=== PATIENT | female | born 1970 | race Two or more races ===

== ENCOUNTER 2019-01-17 13:21 | Emergency (ER) | payer SELFPAY ==
[~2019-01-17] VITALS: Ht 162.6 cm; Wt 74.8 kg
[2019-01-17 15:08] VITALS: BP 113/59
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
== END 2019-01-17 16:36 | disposition home or self-care (01) ==
LOC: ER 13:21
DX: S09.8XXA Other specified injuries of head, initial encounter (principal); R07.81 Pleurodynia; V49.9XXA Car occupant (driver) (passenger) injured in unspecified traffic accident, initial encounter; Y93.I9 Activity, other involving external motion; Y92.415 Exit ramp or entrance ramp of street or highway as the place of occurrence of the external cause; Y99.8 Other external cause status
CPT/HCPCS: 70450; 71045; 99284